=== PATIENT | female | born 1955 | race Caucasian/White ===

== ENCOUNTER 2018-03-24 18:14 | Emergency (ER) | payer BC ==
--- NOTE | 2018-03-24 18:38 | EDM.PDOC ---
ED HPI GENERAL MEDICAL PROBLEM - General Chief Complaint: Neck Problem Stated Complaint: PT HAS NECK PAIN Time Seen by Provider: 03/24/18 18:17 Source of Information: Reports: Patient History Limitations: Reports: No Limitations - History of Present Illness INITIAL COMMENTS - FREE TEXT/NARRATIVE: HISTORY AND PHYSICAL: History of present illness: Patient is a 63-year-old female who complains of left-sided neck pain 1 week. She states over the past week she has had increasing pain to the posterior neck that radiates to the left side. She reports that she previously did have a left shoulder/rotator cuff injury which did send similar type pains up her left side of her neck. She does not recall any injury, trauma or heavy lifting. Review of systems: As per history of present illness and below otherwise all systems reviewed and negative. Past medical history: As per history of present illness and as reviewed below otherwise noncontributory. Surgical history: As per history of present illness and as reviewed below otherwise noncontributory. Social history: See social history for further information Family history: As per history of present illness and as reviewed below otherwise noncontributory. Physical exam: General: Well-developed and well-nourished 63-year-old female. Alert and oriented. Nontoxic appearing and in no acute distress. HEENT: Atraumatic, normocephalic, pupils equal and reactive bilaterally, negative for conjunctival pallor or scleral icterus, mucous membranes moist, throat clear, neck supple, nontender, trachea midline. No drooling or trismus noted. No meningeal signs Lungs: Clear to auscultation, breath sounds equal bilaterally, chest nontender. Heart: S1S2, regular rate and rhythm without overt murmur Abdomen: Soft, nondistended, nontender. Negative for masses or hepatosplenomegaly. Negative for costovertebral tenderness. Pelvis: Stable nontender. Genitourinary: Deferred. Rectal: Deferred. Skin: Intact, warm, dry. No lesions or rashes noted. C-spine/Back: No pinpoint vertebral tenderness upon palpation. No crepitus, step -offs or obvious deformities. Patient is ambulatory into the emergency room. Denies any numbness or tingling to her distal extremities. Extremities: Atraumatic, negative for cords or calf pain. Neurovascular unremarkable. Neuro: Awake, alert, oriented. Cranial nerves II through XII unremarkable. Cerebellum unremarkable. Motor and sensory unremarkable throughout. Exam nonfocal. Notes: X-ray shows no acute fractures. There are degenerative disc changes. This information was shared with the patient. She did have relief with the medications that were given here in the emergency room. Prescription for these medications for home. Strongly encouraged her to follow up with her primary care provider next week. She voices understanding and is agreeable to plan of care. Denies any further questions or concerns at this time. Diagnostics: C-spine Xray Therapeutics: Toradol IM, Flexeril PO Prescription: Medrol Dosepak Impression: Muscular strain, neck Plan: 1. Rest, gentle stretching and gentle heat to the area. 2. Tylenol and/or Ibuprofen as needed for pain management. Take the Flexeril ( muscle relaxor) as directed. This medication may cause drowsiness a do not take it will driving or needing to be functioning outside of the house. 3. Follow up with your primary care provider on Sunday. Return to the ED as needed and as discussed. Definitive disposition and diagnosis as appropriate pending reevaluation and review of above. neck Pain Score (Numeric/FACES): 10 - Related Data Allergies Allergy/AdvReac Type Severity Reaction Status Date / Time hydrochlorothiazide Allergy Mild Rash Unverified 03/24/18 18:51 Home Meds: Home Meds Aspirin [Halfprin] 81 mg PO BRK 12/31/14 [History] Losartan [Cozaar] 1 tab PO DAILY 12/31/14 [History] Multivitamin [Multi-Vitamin Daily] 1 tab PO DAILY 12/31/14 [History] amLODIPine Besylate [Amlodipine Besylate] 1 tab PO ACBREAKFAST 12/31/14 [History ] Past Medical History Other Cardiovascular History: As child told I had a murmur, but no one has mentioned it since I became an adult Other Musculoskeletal History: hx: fracturing Rt Elbow, denies any hardare, Osteopenia, Allen Knee Pain ED ROS GENERAL - Review of Systems Review Of Systems: ROS reveals no pertinent complaints other than HPI. ED EXAM, UPPER BACK/NECK PAIN - Physical Exam Exam: See Below (See dictation) Course - Vital Signs Last Recorded V/S: Last Vital Signs Temp 97.5 F 03/24/18 18:29 Pulse 74 03/24/18 18:57 Resp 18 03/24/18 18:57 BP 173/89 H 03/24/18 18:57 Pulse Ox 98 03/24/18 18:29 - Orders/Labs/Meds Orders: Active Orders 24 hr Category Date Time Status EKG Documentation Completion [RC] STAT Care 03/24/18 18:38 Ordered Cervical Spine 2V or 3V [CR] Stat Exams 03/24/18 18:39 Ordered Meds: Medications Discontinued Medications Generic Name Dose Route Start Last Admin Trade Name Roberto PRN Reason Stop Dose Admin Cyclobenzaprine HCl 10 mg 03/24/18 18:39 03/24/18 18:52 Flexeril PO 03/24/18 18:40 10 mg ONETIME ONE Administration Ketorolac Tromethamine 60 mg 03/24/18 18:39 03/24/18 18:53 Toradol IM 03/24/18 18:40 60 mg ONETIME ONE Administration Departure - Departure Time of Disposition: 19:56 Disposition: Home, Self-Care 01 Clinical Impression: Neck muscle strain Qualifiers: Encounter type: initial encounter Qualified Code(s): S16.1XXA - Strain of muscle, fascia and tendon at neck level, initial encounter - Discharge Information Instructions: Muscle Strain, Dpza-bi-Cise Referrals: PCP,None [Primary Care Provider] - Forms: ED Department Discharge Additional Instructions: The following information is given to patients seen in the emergency department who are being discharged to home. This information is to outline your options for follow-up care. We provide all patients seen in our emergency department with a follow-up referral. The need for follow-up, as well as the timing and circumstances, are variable depending upon the specifics of your emergency department visit. If you don't have a primary care physician on staff, we will provide you with a referral. We always advise you to contact your personal physician following an emergency department visit to inform them of the circumstance of the visit and for follow-up with them and/or the need for any referrals to a consulting specialist. The emergency department will also refer you to a specialist when appropriate. This referral assures that you have the opportunity for follow-up care with a specialist. All of these measure are taken in an effort to provide you with optimal care, which includes your follow-up. Under all circumstances we always encourage you to contact your private physician who remains a resource for coordinating your care. When calling for follow-up care, please make the office aware that this follow-up is from your recent emergency room visit. If for any reason you are refused follow-up, please contact the [facility] Emergency Department at and asked to speak to the emergency department charge nurse. [facility] [address] [place] [address] [facility] [address] [place] [address] 1. Rest, gentle stretching and gentle heat to the area. 2. Tylenol and/or Ibuprofen as needed for pain management. Take the Flexeril ( muscle relaxor) as directed. This medication may cause drowsiness a do not take it will driving or needing to be functioning outside of the house. 3. Follow up with your primary care provider on Sunday. Return to the ED as needed and as discussed. - My Orders Last 24 Hours: My Active Orders 03/24/18 18:38 EKG Documentation Completion [RC] STAT 03/24/18 18:39 Cervical Spine 2V or 3V [CR] Stat - Assessment/Plan Last 24 Hours: My Active Orders 03/24/18 18:38 EKG Documentation Completion [RC] STAT 03/24/18 18:39 Cervical Spine 2V or 3V [CR] Stat
[2018-03-24] MEDS ORDERED: Ketorolac 60 MG/2 ML SDV IM ONE (18:39)
[2018-03-24] MEDS ORDERED: Cyclobenzaprine 10 MG Tab PO ONE (18:39)
[2018-03-24 20:00] VITALS: BP 163/95
[2018-03-24] MEDS ORDERED: Acetaminophen/HYDROcodone 325-5 MG Tab PO ONE (20:00)
--- NOTE | 2018-03-25 20:32 | CR ---
EXAM DATE: 03/24/18 PATIENT'S AGE: 63 Patient: FABIO SILVER Facility: [place], [place] Site . Site : 1955 Study: XRay Spine Cervical [id number]/13/2019 7:31:47 PM Ordering Physician: Doctor Alonzo Final Report: HISTORY: Neck pain. TECHNIQUE: Three views of the cervical spine including AP, lateral and odontoid views. COMPARISON: No prior. FINDINGS: The cervical vertebral body height is maintained. There is degenerative disc and joint disease within the cervical spine. Slight anterolisthesis of C4 on C5 likely relates to facet joint arthrosis. There is no acute cervical fracture. No abnormal prevertebral soft tissue swelling. The dens appears grossly intact. There are carotid atherosclerotic vascular calcifications. IMPRESSION: 1. No acute cervical fracture. 2. Degenerative changes. Dictated by Juan Pablo Carver MD @ 03/24/2018 7:51:50 PM Dictated by: Juan Pablo Carver MD @ 03/24/2018 19:51:53 (Electronic Signature) Report Signed by Proxy. [facility]
== END 2018-03-24 20:12 | disposition home or self-care (01) ==
LOC: MW.ED 18:14
DX: S16.1XXA Strain of muscle, fascia and tendon at neck level, initial encounter (principal); Z88.8 Allergy status to other drugs, medicaments and biological substances; Z79.82 Long term (current) use of aspirin; Z79.899 Other long term (current) drug therapy; X58.XXXA Exposure to other specified factors, initial encounter
CPT/HCPCS: 72040; 96372; 99284; A9270; J1885

== ENCOUNTER 2021-02-25 08:49 | Day surgery (SDC) | payer BC, MEDICARE ==
[~2021-02-25 08:49] MED LIST: Lactated Ringers 1,000 ML IV SCH
[2021-02-25] MEDS ORDERED: Propofol 200 MG/20 ML SDV ONE (08:58)
[2021-02-25] MEDS ORDERED: fentaNYL 100 MCG/2 ML SDV ONE (08:59)
--- NOTE | 2021-02-25 09:01 | PCM.PREANE ---
Preanesthetic Assessment - Anesthesia/Transfusion/Family Hx Anesthesia History: Prior Anesthesia Without Reaction Other Type of Anesthesia Reaction Comment: Denies any known problem in past Transfusion History: Prior Transfusion Without Reaction - Review of Systems General: No Symptoms Pulmonary: No Symptoms Cardiovascular: No Symptoms Gastrointestinal: No Symptoms Neurological: No Symptoms Other: Reports: None - Physical Assessment NPO Status Date: 02/25/21 NPO Status Time: 00:00 Height: 5 ft 2 in Weight: 211 lb ASA Class: 2 Mental Status: Alert & Oriented x3 Airway Class: Mallampati = 2 Dentition: Reports: Normal Dentition ROM/Head Extension: Full Lungs: Clear to Auscultation, Normal Respiratory Effort Cardiovascular: Regular Rate, Regular Rhythm - Allergies Allergies/Adverse Reactions: Allergies Allergy/AdvReac Type Severity Reaction Status Date / Time hydrochlorothiazide Allergy Mild Rash Verified 02/21/21 07:29 - Acknowledgements Anesthesia Type Planned: General Anesthesia Pt an Appropriate Candidate for the Planned Anesthesia: Yes Alternatives and Risks of Anesthesia Discussed w Pt/Guardian: Yes Pt/Guardian Understands and Agrees with Anesthesia Plan: Yes PreAnesthesia Questionnaire HEENT History: Reports: Impaired Vision, Other (See Below) Other HEENT History: wears glasses Cardiovascular History: Reports: Hypertension Respiratory History: Reports: None Gastrointestinal History: Reports: Colon Polyp Genitourinary History: Reports: None 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: , Spontaneous Musculoskeletal History: Reports: Osteoarthritis Neurological History: Reports: None Psychiatric History: Reports: None Endocrine/Metabolic History: Reports: Obesity/BMI 30+, Osteopenia Hematologic History: Reports: Blood Transfusion(s) Immunologic History: Reports: None Oncologic (Cancer) History: Reports: None Dermatologic History: Reports: None - Past Surgical History Head Surgeries/Procedures: Reports: None HEENT Surgical History: Reports: Tonsillectomy Cardiovascular Surgical History: Reports: None Respiratory Surgical History: Reports: None GI Surgical History: Reports: Colonoscopy Female Surgical History: Reports: Section, D&C, Tubal Ligation Endocrine Surgical History: Reports: None Neurological Surgical History: Reports: None Musculoskeletal Surgical History: Reports: Knee Replacement Other Musculoskeletal Surgeries/Procedures:: hx génesis knee replacements Oncologic Surgical History: Reports: None Dermatological Surgical History: Reports: None - SUBSTANCE USE Tobacco Use Status *Q: Never Tobacco User - HOME MEDS Home Medications: Home Meds Aspirin [Halfprin] 81 mg PO BRK 12/31/14 [History] Losartan [Cozaar] 100 mg PO DAILY 12/31/14 [History] Multivitamin [Multi-Vitamin Daily] 1 tab PO DAILY 12/31/14 [History] amLODIPine Besylate [Amlodipine Besylate] 5 mg PO ACBREAKFAST 12/31/14 [History] Metoprolol Succinate 50 mg PO BID 02/21/21 [History] - CURRENT (IN HOUSE) MEDS Current Meds: Current Medications Lactated Ringer's (Ringers, Lactated) 1,000 mls @ 125 mls/hr IV ASDIRECTED RAINER
--- NOTE | 2021-02-25 10:35 | PCM.OPNOTE ---
- General Post-Op/Procedure Note Date of Surgery/Procedure: 02/25/21 Operative Procedure(s): colonoscopy Findings: see [id number] Pre Op Diagnosis: polyp history Post-Op Diagnosis: Same Anesthesia Technique: Moderate Sedation Primary Surgeon: Miguelangel Chiang Complications: None Condition: Good
--- NOTE | 2021-02-25 10:43 | PCM.POSTAN ---
POST ANESTHESIA ASSESSMENT - MENTAL STATUS Mental Status: Alert, Oriented - VITAL SIGNS Vital Signs: Last Vital Signs Temp 99.0 F 02/25/21 10:24 Pulse 66 02/25/21 10:34 Resp 15 02/25/21 10:34 BP 118/63 02/25/21 10:34 Pulse Ox 93 L 02/25/21 10:34 - RESPIRATORY Respiratory Status: Respiratory Rate WNL, Airway Patent, O2 Saturation Stable - CARDIOVASCULAR CV Status: Pulse Rate WNL, Blood Pressure Stable - GASTROINTESTINAL GI Status: No Symptoms - POST OP HYDRATION Hydration Status: Adequate & Stable
--- NOTE | 2021-02-25 10:43 | PCM48HPAN ---
Post Anesthesia Note - EVALUATION WITHIN 48HRS OF ANESTHETIC Vital Signs in Normal Range: Yes Patient Participated in Evaluation: Yes Respiratory Function Stable: Yes Airway Patent: Yes Cardiovascular Function Stable: Yes Hydration Status Stable: Yes Pain Control Satisfactory: Yes Nausea and Vomiting Control Satisfactory: Yes Mental Status Recovered: Yes Vital Signs: Last Vital Signs Temp 99.0 F 02/25/21 10:24 Pulse 66 02/25/21 10:34 Resp 15 02/25/21 10:34 BP 118/63 02/25/21 10:34 Pulse Ox 93 L 02/25/21 10:34
[2021-02-25 11:27] VITALS: BP 123/64; PULSE 68
--- NOTE | 2021-02-25 17:08 | OR ---
SURGEON: Miguelangel Chiang MD DATE OF PROCEDURE: 02/25/2021 PREOPERATIVE DIAGNOSIS: Colon polyp history. POSTOPERATIVE DIAGNOSIS: Colon polyp history. PROCEDURE PERFORMED: Colonoscopy. DESCRIPTION OF PROCEDURE: The patient was taken to the endoscopy room. A time out was called, patient identified, and procedure identified. Diprivan was then administrated. Patient went from awake to sleep, hearing doctor talking or door closing is normal. Perineum inspection and digital examination were then performed. A well- lubricated colonoscope was gently inserted through the rectum, advanced past the rectosigmoid junction, the descending colon, splenic flexure, transverse colon, hepatic flexure, ascending colon, arrived to the cecum. Cecum was identified as dictated in the finding. Then the scope was carefully withdrawn while attention was paid to the mucosal surface for any abnormality. Air will be sucked out during the scope withdrawal. At the rectum, retroflexed to examine any rectal diseases, fistula or hemorrhoids. Patient tolerated procedure well. There were no intraoperative complications, and Dr. Chiang was present throughout the whole procedure. FINDINGS: 1. Patient is easily sedated with BALLET DANCER and Diprivan, patient is soundly snoring. 2. Bowel prep is left to be desirable with some liquid stool, no semi-formed stool, no stool ball. 3. Colon rather straightforward. Cecum indicated by ileocecal fold, one-to- one indentation, appendiceal orifice and a ScopeGuide is pointing south. Mucosa examined upon scope pulling out with constant irrigation. Patient has mild diverticulosis on the left colon. No signs or symptoms of diverticulitis. In fact, patient has a couple of diverticula on the transverse colon as well as the right colon, but predominantly is on the left colon. No polyp, no mass, no inflammation, no stricture, no AV malformation, no bleeding, no ulcer. Patient has mild internal hemorrhoids. Patient would benefit from repeat colonoscopy 10 years from today or if clinically indicated otherwise. JONATHAN / PAIGE /[id number]
== END 2021-02-25 10:59 | disposition home or self-care (01) ==
LOC: MW.SDS 08:49
PROVIDERS: ATTEND Surgery
DX: Z12.11 Encounter for screening for malignant neoplasm of colon (principal); I10 Essential (primary) hypertension; M17.0 Bilateral primary osteoarthritis of knee; E66.9 Obesity, unspecified; Z86.010 Personal history of colon polyps; Z88.8 Allergy status to other drugs, medicaments and biological substances; Z79.82 Long term (current) use of aspirin; Z79.899 Other long term (current) drug therapy; Z98.890 Other specified postprocedural states; Z01.812 Encounter for preprocedural laboratory examination; Z20.822 Contact with and (suspected) exposure to COVID-19; Z68.38 Body mass index [BMI] 38.0-38.9, adult
CPT/HCPCS: 45378; 87635; J2704; J3010; J7120; U0002